=== PATIENT | male | born 1950 | race Caucasian/White ===

== ENCOUNTER 2023-04-20 07:12 | Inpatient (IN) ==
--- NOTE | 2023-04-06 13:03 | PAT Medication Instructions ---
Medication Instructions Date of Service April 06, 2023 Home Medications Fish Oil Capsule 1,000 mg PO QAM amlodipine 5 mg tablet 5 mg PO QAM aspirin 81 mg tablet,delayed release 81 mg PO QAM atorvastatin 40 mg tablet 40 mg PO HS chlorthalidone 25 mg tablet 25 mg PO QAM cholecalciferol (vitamin D3) 50 mcg (2,000 unit) tablet (Vitamin D3) 50 mcg PO BID clopidogrel 75 mg tablet (Plavix) 75 mg PO QAM coQ10 (ubiquinol) 100 mg capsule 100 mg PO QAM glucosamine sulf dipot chlr,msm,chond 550 mg-C 30 mg-toni 1 mg capsule (Glucosamine Chondroitin) 1 cap PO BID ketoconazole 2 % topical cream 1 applic topical BID PRN losartan 100 mg tablet 100 mg PO HS multivitamin 0.5 tab PO BID pantoprazole 20 mg tablet,delayed release 20 mg PO QAM ASK your prescriber and surgeon aspirin 81 mg tablet,delayed release 81 mg PO QAM clopidogrel 75 mg tablet (Plavix) 75 mg PO QAM STOP taking 2 weeks before surgery (or as soon as possible if surgery is within 2 weeks) Fish Oil Capsule 1,000 mg PO QAM coQ10 (ubiquinol) 100 mg capsule 100 mg PO QAM glucosamine sulf dipot chlr,msm,chond 550 mg-C 30 mg-toni 1 mg capsule (Glucosamine Chondroitin) 1 cap PO BID STOP taking 24 hours before surgery ketoconazole 2 % topical cream 1 applic topical BID PRN DO NOT take the morning of surgery chlorthalidone 25 mg tablet 25 mg PO QAM cholecalciferol (vitamin D3) 50 mcg (2,000 unit) tablet (Vitamin D3) 50 mcg PO BID multivitamin 0.5 tab PO BID Take morning of surgery With a small sip of water, OTHERWISE NOTHING TO EAT OR DRINK AFTER MIDNIGHT: amlodipine 5 mg tablet 5 mg PO QAM pantoprazole 20 mg tablet,delayed release 20 mg PO QAM Take evening before surgery atorvastatin 40 mg tablet 40 mg PO HS cholecalciferol (vitamin D3) 50 mcg (2,000 unit) tablet (Vitamin D3) 50 mcg PO BID losartan 100 mg tablet 100 mg PO HS multivitamin 0.5 tab PO BID Other Notes If you have any questions please call us at [phone] or [phone] or [phone] or [phone]
--- NOTE | 2023-04-09 12:01 | Anesthesiology Consultation ---
Date of Service April 09, 2023 Assessment & Plan (1) Encounter for pre-operative examination: - Infectious disease screening: Per assessment on 04/06/23: No known infectious disease contacts or current infectious disease symptoms. No noted recent Covid positive test result. - Plavix instructions: Per surgeon/prescriber - PCP visit (04/02/23): " Chronic medical conditions are stable at this time.. Review of patient history, and physical examination are WNL. Preop labs, chest x-ray, and EKG pending. Medical clearance pending." > Addendum 04/07/23: "Labs, chest xray, and EKG all WNL. Patient cleared for surgery from PCP. - Cardiology visit (04/06/23): "Based on history, physical examination and the above information do not recommend further invasive or noninvasive cardiovascular testing or procedures prior to proceeding with planned L4-S1 decompression and fusion surgery. Patient is well optimized from a cardiac standpoint to proceed with his scheduled procedure." Chart Review Chart Review: Acceptable Risk for Surgery and Patient seen in Pre Admission Testing Teaching & Discussion Pre-Anesthesia Teaching/Discussion Notes: Instructed NPO after midnight before surgery,except medications with 15 cc of water. Medication instructions provided according to the PAT guidelines. History Surgery Operation Date: 04/20/23 09:50 Proposed Procedures p L4-S1 Decompression and Fusion, Spinal Cord Monitoring - Mikel Chong DO Height/Weight Height: 5 ft 8 in Weight: 97.522 kg Allergies Allergy/AdvReac Type Severity Reaction Status Date / Time adhesive tape Allergy Mild Skin Verified 04/06/23 11:18 peeling doxycycline AdvReac Intermediate Severe Verified 04/06/23 11:18 headaches prednisone AdvReac Intermediate Severe Verified 04/06/23 11:18 headaches Medications Home Medications Medication Instructions Recorded Confirmed Last Taken Fish Oil Capsule 1,000 mg PO QAM 04/06/23 04/06/23 Unknown amlodipine 5 mg tablet 5 mg PO QAM 04/06/23 04/06/23 Unknown aspirin 81 mg tablet,delayed 81 mg PO QAM 04/06/23 04/06/23 Unknown release atorvastatin 40 mg tablet 40 mg PO HS 04/06/23 04/06/23 Unknown chlorthalidone 25 mg tablet 25 mg PO QAM 04/06/23 04/06/23 Unknown cholecalciferol (vitamin D3) 50 50 mcg PO BID 04/06/23 04/06/23 Unknown mcg (2,000 unit) tablet (Vitamin D3) clopidogrel 75 mg tablet (Plavix) 75 mg PO QAM 04/06/23 04/06/23 Unknown coQ10 (ubiquinol) 100 mg capsule 100 mg PO QAM 04/06/23 04/06/23 Unknown glucosamine sulf dipot 1 cap PO BID 04/06/23 04/06/23 Unknown chlr,msm,chond 550 mg-C 30 mg-toni 1 mg capsule (Glucosamine Chondroitin) ketoconazole 2 % topical cream 1 applic topical BID PRN . 04/06/23 04/06/23 Unknown losartan 100 mg tablet 100 mg PO HS 04/06/23 04/06/23 Unknown multivitamin 0.5 tab PO BID 04/06/23 04/06/23 Unknown pantoprazole 20 mg tablet,delayed 20 mg PO QAM 04/06/23 04/06/23 Unknown release Past Medical History Medical History Arthritis CAD (coronary artery disease) 1999- stent x1 2000- stents x2 04/2002- stent x2 Follows by Dr. Wilde/[facility] Carotid artery disease s/p Left CEA (2017) Per 04/2023 cardiology visit, patient had carotid duplex 06/2020 showing ANNEMARIE 40-50, left CEA without sign of residual or recurrent stenosis Degenerative disc disease GERD (gastroesophageal reflux disease) Hyperlipidemia Hypertension Myocardial Infarction 1999 Neuropathy BLE PAD (peripheral artery disease) Stroke 2018 (event happened during carotid surgery) No residual issues Exercise / Class Metabolic Activity III < 4 Walking/Shop/Light housework Past Family History Family History Other No family history of adverse response to anesthesia Past Surgical History Surgical History H/O arthroscopy of left knee H/O carotid endarterectomy left (2017) H/O prostate biopsy History of appendectomy History of bladder surgery History of cardiac cath Hx multiple cardiac stents with most recent being 2002- dates/stent hx clarified with cardiology records 1999- stent x1 2000- stents x2 2001- patent LAD/D1/RCA stents 04/2002- stent x2 06/2002, 2005, 2006, 2008- no stents History of colonoscopy History of esophagogastroduodenoscopy (EGD) History of lumbar surgery discectomy History of tonsillectomy History of tooth extraction Past Anesthesia History No Hx of Anesthesia Complications and No Family Hx of Anesthesia Complications History of PONV No Hx of PONV and No Hx of Motion Sickness Social History Smoking Status: Former smoker Do You Dip or Chew Tobacco: No (Quit 1973) Smoking End Date: Quit 1999 Hx Alcohol Use: No substance use type: does not use Review of Systems Patient denies chest pain, shortness of breath, fever, chills, cough, wheezing, palpitations. Physical Exam Vital Signs VITALS BP 128/74 P 69 TEMP 98.2 SP02 95%RA RESP 18 PHYSICAL Full cervical extension range of motion. Full TMJ range of motion. TMD 3.5 finger breaths Mallampati Score 2 Dentition: full upper/lower dentures Lungs: clear throughout to auscultation Cardiac: regular rate and rhythm, no murmurs noted Spine: normal Carotid arteries: negative bruit Extremities: no LE edema Lab Results Anesthesia Preop Results Results Anesthesia Widget: Na 134 mmol/L (136-145) L 04/09/23 K 3.3 mmol/L (3.5-5.1) L 04/09/23 Cl 98 mmol/L (98-107) 04/09/23 CO2 28 mmol/L (21-32) 04/09/23 BUN 24 mg/dl (6-23) H 04/09/23 Creat 0.98 mg/dl (0.6-1.4) 04/09/23 Glucose Level 116 mg/dl (70-99(Fasting)) H 04/09/23 PTT 27 Seconds (21-31) 04/09/23 Blood Type O Positive 04/09/23 Antibody Screen NEGATIVE 04/09/23 Testing Laboratory Results 04/02/23 WBC 8.0 H/H 13.1/37.6 PLATELETS 238 PT 10.9 INR 1.0 UA negative URINE CULTURE less than 10,000CFU/ml of single gram positive organism isolated. "No further testing will be performed" > (no urinary symptoms/complaints at PAT visit 04/09/23*) Electrocardiogram Date: 04/06/23 Sinus rhythm at [address] depression. Nondiagnostic. Chest X-Ray Date: 04/09/23 FINDINGS: Cardiac silhouette is normal in size. Mild hyperinflation with diaphragmatic flattening. Coronary arterial stenting. No pneumothorax, pleural effusion or airspace consolidation. The bones appear grossly intact. Healed chronic left distal clavicular fracture deformity. IMPRESSION: No acute process. Echocardiogram Date: 05/29/22 Limited echo for LV function: EF 55 to 60%. Wall motion is normal. Stress Test Date: 06/20/18 Gated SPECT: LVEF 73%. LV global systolic function is normal. No LV regional motion abnormality. SPECT images demonstrate normal radiotracer uptake across all myocardial segments during both rest and stress imaging. Stress EKG is negative for acute ischemic changes. 85% MPHR.
[2023-04-20] MEDS ORDERED: PROPOFOL IV EMULSION 10 MG/ML 20 ML VIAL IV ONE (08:19)
[2023-04-20] MEDS ORDERED: ROCURONIUM BROMIDE 10 MG/ML 5 ML VIAL IV ONE (08:19)
[2023-04-20] MEDS ORDERED: fentaNYL citrate PF 100 MCG/2 ML VIAL ONE (08:19)
[2023-04-20] MEDS ORDERED: MIDAZOLAM HCL 1 MG/ML 2ML VIAL ONE (08:19)
[2023-04-20] MEDS ORDERED: ONDANSETRON INJ 2 MG/ML 2 ML VIAL ONE ×2 (08:19→11:29)
[2023-04-20] MEDS ORDERED: LIDOCAINE 2% 2 ML VIAL/AMP(20MG/ML) INFIL ONE (08:19)
[2023-04-20] MEDS ORDERED: HYDROmorphone INJ 2 MG/ML SYR/VIAL ONE (08:22)
[2023-04-20] MEDS ORDERED: ATROPINE SULFATE 0.1 MG/ML 10ML SYR IV PRN (08:33)
[2023-04-20] MEDS ORDERED: PROMETHAZINE HCL 6.25 MG in SODIUM CHLORIDE 0.9% 50 ML IV PRN (08:33)
[2023-04-20] MEDS ORDERED: HYDROmorphone INJ 2 MG/ML SYR/VIAL IV PRN (08:33)
[2023-04-20] MEDS ORDERED: ePHEDrine sulfate 50 MG/ML AMP IV PRN (08:33)
[2023-04-20] MEDS ORDERED: ONDANSETRON INJ 2 MG/ML 2 ML VIAL IV PRN ×2 (08:33→13:46)
[2023-04-20] MEDS: LR 60ML/HR IV SCH (08:50)
[2023-04-20] MEDS: GABAPENTIN 300 MG CAP PO SCH (08:50)
[2023-04-20] MEDS: ACETAMINOPHEN 500 MG TAB PO SCH (08:50)
[2023-04-20] MEDS: CeleBREX 200 MG CAP PO SCH (08:50)
[2023-04-20] MEDS: LR 15ML/HR IV SCH (08:50)
--- NOTE | 2023-04-20 09:16 | History & Physical Bridge Note ---
Date of Service April 20, 2023 History & Physical Bridge Note I have examined the patient, reviewed the History & Physical and in the interval since the performance of the History & Physical I have noted the following changes of clinical significance: no changes noted
--- NOTE | 2023-04-20 09:17 | History & Physical Report ---
Date of Service April 20, 2023 Assessment & Plan (1) Neurogenic claudication due to lumbar spinal stenosis: Plan: L4-S1 decompression and fusion History of Present Illness Chief Complaint: Back and leg pain Primary Care Provider: MANUEL Garrett This is a 72-year-old female male who presents with persistent back and leg pain after failing since course of nonoperative care is here for surgical invention. Allergies Allergy/AdvReac Type Severity Reaction Status Date / Time methylprednisolone Allergy Severe Verified 04/20/23 08:17 [From Solu-Medrol] adhesive tape Allergy Mild Skin Verified 04/06/23 11:18 peeling doxycycline AdvReac Intermediate Severe Verified 04/06/23 11:18 headaches prednisone AdvReac Intermediate Severe Verified 04/06/23 11:18 headaches Home Medications Medication Instructions Recorded Confirmed Type Fish Oil Capsule 1,000 mg PO QAM 04/06/23 04/20/23 History amlodipine 5 mg tablet 5 mg PO QAM 04/06/23 04/20/23 History aspirin 81 mg tablet,delayed 81 mg PO QAM 04/06/23 04/20/23 History release atorvastatin 40 mg tablet 40 mg PO HS 04/06/23 04/20/23 History chlorthalidone 25 mg tablet 25 mg PO QAM 04/06/23 04/20/23 History cholecalciferol (vitamin D3) 50 50 mcg PO BID 04/06/23 04/20/23 History mcg (2,000 unit) tablet (Vitamin D3) clopidogrel 75 mg tablet (Plavix) 75 mg PO QAM 04/06/23 04/20/23 History coQ10 (ubiquinol) 100 mg capsule 100 mg PO QAM 04/06/23 04/20/23 History glucosamine sulf dipot 1 cap PO BID 04/06/23 04/20/23 History chlr,msm,chond 550 mg-C 30 mg-toni 1 mg capsule (Glucosamine Chondroitin) ketoconazole 2 % topical cream 1 applic topical BID PRN . 04/06/23 04/20/23 History losartan 100 mg tablet 100 mg PO HS 04/06/23 04/20/23 History multivitamin 0.5 tab PO BID 04/06/23 04/20/23 History pantoprazole 20 mg tablet,delayed 20 mg PO QAM 04/06/23 04/20/23 History release Past Med/Surg History Medical History Arthritis CAD (coronary artery disease) 1999- stent x1 2000- stents x2 04/2002- stent x2 Follows by Dr. Wilde/Genesis Carotid artery disease s/p Left CEA (2017) Per 04/2023 cardiology visit, patient had carotid duplex 06/2020 showing ANNEMARIE 40-50, left CEA without sign of residual or recurrent stenosis Degenerative disc disease GERD (gastroesophageal reflux disease) Hyperlipidemia Hypertension Myocardial Infarction 1999 Neuropathy BLE PAD (peripheral artery disease) Stroke 2018 (event happened during carotid surgery) No residual issues Surgical History H/O arthroscopy of left knee H/O carotid endarterectomy left (2017) H/O prostate biopsy History of appendectomy History of bladder surgery History of cardiac cath Hx multiple cardiac stents with most recent being 2002- dates/stent hx clarified with cardiology records 1999- stent x1 2000- stents x2 2001- patent LAD/D1/RCA stents 04/2002- stent x2 06/2002, 2004, 2006, 2008- no stents History of colonoscopy History of esophagogastroduodenoscopy (EGD) History of lumbar surgery discectomy History of tonsillectomy History of tooth extraction Family History Other No family history of adverse response to anesthesia Social History Smoking Status: Former smoker Tobacco Type: Cigarettes and Smokeless Tobacco (Dip or Chew) Smoking End Date: Quit 1999; Second Hand Exposure: Yes (as a child); Do You Dip or Chew Tobacco: No (Quit 1973); Hx Alcohol Use: No Preferred Language: Syriac Silk 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
[2023-04-20] MEDS: ceFAZolin 2000MG 2,000 MG/15 ML SYR IV SCH ×2 (09:53→17:16)
[2023-04-20] MEDS: BUPIVACAINE/EPINEPHRINE 0.5% MPF 1:200,000 30 ML VIAL ONE (10:21)
[2023-04-20] MEDS: ceFAZolin 330 MG/ML 1 GM VIAL ONE (10:21)
[2023-04-20] MEDS ORDERED: SUGAMMADEX SODIUM 200 MG/2 ML VIAL IV ONE (11:28)
[2023-04-20] MEDS ORDERED: SODIUM CHLORIDE 0.9% PF INJ 10 ML VIAL ONE (11:38)
[2023-04-20] MEDS: FLOSEAL HEMOSTATIC MATRIX 10ML TOP ONE (11:55)
--- NOTE | 2023-04-20 12:06 | Operative Report ---
Post Operative Report Pre & Post Diagnosis Operation Date: 04/20/23 09:50 Pre-Op Diagnosis: Lumbar Spondylosis, Lumbar Disc Disease, Spinal Stenosis Post-Op Diagnosis: Lumbar Spondylosis, Lumbar Disc Disease, Spinal Stenosis I identified the patient and participated in the time-out.: Yes Procedure Operation Date: 04/20/23 09:50 Actual Procedures #1 revision decompression bilaterally facetectomies and foraminotomies L3-L4, L4-5 and L5-S1. #2 posterior spinal fusion L4-S1. #3 placed posterior instrumentation L4-S1. #4 interbody fusion L4-L5 L5-S1. #5 placement Spira 13 x 26 mm at L4-5 and 14 x 26 mm x 2 at L5-S1. #6 placement locally harvested morselized autograft and posterior gutters. #7 placement infuse collagen sponge combined with Koros in the posterior gutters and Morpheus bone graft interbody space. Surgeon Mikel Chong, DO Manager Scientific Lana Mann Estimated Blood Loss 300 Findings See Below The patient is 5 foot 8 weighing over 99 kg with a BMI in excess of 33. The patient's body habitus contributed to significant technical difficulty with positioning exposure and the procedure itself adding at least 50% increased operative time. Specimens None Indications This is a 72-year-old male who presents above-mentioned diagnosis after failed extensive course of nonoperative care is here for surgical invention. Description of Procedure Patient was met with identified informed consent obtained. Patient was then taken to the operative suite underwent patient placed in a prone position the Lutts table top Lawson frame. All bony prominences well-padded eyes inspected to ensure no external pressure placed upon the. This point the lumbar spine was prepped and draped in a sterile fashion. Sharp dissection with the assistance of Bovie cautery form down to and exposing the remaining lamina and transverse processes of L4-L5 and the sacral ala bilaterally. From a caudal cephalad fashion revision complete laminectomy of L5 L4 and partial laminectomy L3 was performed including bilaterally facetectomies and foraminotomies addressing severe spinal stenosis. Pedicle screws were then placed in L4-5 and S1 levels bilaterally with assistance of fluoroscopy and appropriate sized nataliia placed. By way the transforaminal approach on the right a discectomy L5-S1 was performed endplates guided to subcortical bleeding bone and a 14 x 26 mm Spira cage filled with Morpheus tapped in position. Then proceeded to the left transforaminal region completed the discectomy curetted the endplates to subcortical bleeding bone and placed a second 14 x 26 mm Spira cage with Morpheus bone graft in the L5-S1 level. Then proceeded to L4-L5 and by way of a transforaminal approach and right complete discectomy performed endplates guided to subcortical bleeding bone and a 13 x 26 mm Spira cage filled with Morpheus bone graft tapped in position. The rods were then locked in final position bilaterally. The transverse processes of L4-5 and sacral ala burred to subcortical bleeding bone. Infuse collagen sponge combined with Koros and local autograft placed in the posterior gutters. 15 round STEPHON inserted. The incision was then closed with 1 Vicryl fascia 2-0 Vicryl subcutaneously and 4 Monocryl for final closure. Steri-Strips dressings placed. Patient waken taken to PACU in stable condition. Please note spinal cord monitoring visualized at the procedure no changes noted. Lastly Lana Mann was present at the entire surgeon while the patient positioning complex portion of the surgery and final skin closure. I attest to the content of the Intraoperative Record and any orders documented therein. Any exceptions are noted below.
[2023-04-20] MEDS: fentaNYL citrate PF 100 MCG/2 ML VIAL IV PRN (12:43)
--- NOTE | 2023-04-20 13:04 | Fluoroscopy Report ---
FL lumbar spine 2-3V CLINICAL HISTORY: L4-S1 Decompression/Fusion COMPARISON STUDY: None. FLUOROSCOPY TIME: 22 seconds FLUOROSCOPY IMAGES: 2 Ka,r: 16.2 mGy FINDINGS: Posterior decompression and fusion from L4 through S1 with pedicle screws and rods. The braxton dware is intact. Disc spacers are placed. IMPRESSION: Fluoroscopic assistance as above. ACT 112: Negative or not required by law. Electronically signed by: Julien Davila M.D. 04/20/2023 1:02 PM
--- NOTE | 2023-04-20 13:19 | Anesthesiology Progress Note ---
Date of Service April 20, 2023 Anesthesia Post Procedure Vital Signs Vital Signs: Temp Pulse Pulse Resp BP Pulse Ox O2 Del Method 04/20/23 13:10 36.5 C 77 16 137/74 93 Nasal Cannula 04/20/23 13:00 76 17 137/69 94 Room Air 04/20/23 12:50 78 11 L 148/78 H 99 Oxymask 04/20/23 12:40 80 16 161/80 H 98 Oxymask 04/20/23 12:30 89 9 L 182/93 H 97 Oxymask 04/20/23 12:24 36.3 C L 94 H 16 181/89 H 95 Oxymask 04/20/23 08:24 36.5 C 62 20 166/76 H 97 Room Air O2 Flow Rate 04/20/23 13:10 2 04/20/23 13:00 04/20/23 12:50 2 04/20/23 12:40 3 04/20/23 12:30 3 04/20/23 12:24 5 04/20/23 08:24 Pain Intensity Back: Pain Intensity: 0 Transfer of Care Handoff Completed per policy Notes Mental Status: alert / awake / arousable and participated in evaluation Patient Amnestic to Procedure: Yes Nausea / Vomiting: adequately controlled Pain: adequately controlled Airway Patency, RR, SpO2: stable & adequate BP & HR: stable & adequate Hydration State: stable & adequate Anesthetic Complications: no major complications apparent and Pt Satisfied with anesthetic care
[2023-04-20] MEDS ORDERED: DO NOT ADMINISTER FLU VACCINE PRN (13:46)
[2023-04-20] MEDS ORDERED: ACETAMINOPHEN 1,000 MG/100 ML VIAL IV PRN (13:46)
[2023-04-20] MEDS ORDERED: hydrOXYzine HCl 25 MG TAB PO PRN (13:46)
[2023-04-20] MEDS ORDERED: PROMETHAZINE HCL 12.5 MG in SODIUM CHLORIDE 0.9% 50 ML IV PRN (13:46)
[2023-04-20] MEDS ORDERED: METOCLOPRAMIDE HCL INJ 5 MG/ML 2 ML VIAL IV PRN (13:46)
[2023-04-20] MEDS ORDERED: SOD PHOSPHATE/SOD BIPHOSPHATE ENEMA 132 ML BTL PR PRN (13:46)
[2023-04-20] MEDS ORDERED: HYDROmorphone INJ 1 MG/ML SYRINGE IV PRN (13:46)
[2023-04-20] MEDS ORDERED: DO NOT ADMINISTER PNEUMOCOCCAL VACCINE PRN (13:46)
[2023-04-20] MEDS ORDERED: LORazepam 0.5 MG TAB PO PRN (13:46)
[2023-04-20] MEDS ORDERED: bisacodyL 10 MG SUPP PR PRN (13:46)
[2023-04-20] MEDS ORDERED: LORazepam 0.5 MG in SYRINGE 0.25 ML IV PRN (13:46)
[2023-04-20] MEDS ORDERED: ALUMINUM/MAGNESIUM SUSP 30 ML UDC PO PRN (13:46)
[2023-04-20] MEDS ORDERED: NALOXONE HCL 0.4 MG/1 ML VIAL/CARP IV PRN (13:46)
[2023-04-20] MEDS ORDERED: ONDANSETRON 4 MG OD TAB PO PRN (13:46)
[2023-04-20] MEDS: LACTATED RINGER'S 1,000 ML IV SCH (14:03)
[2023-04-20] MEDS: HYDROmorphone INJ 0.5 MG/0.5 ML SYR IV PRN (14:53)
[2023-04-20] MEDS: oxyCODONE HCL IR 5 MG TAB (IMMEDIATE RELEASE) PO PRN (17:15)
--- NOTE | 2023-04-20 17:16 | Hospitalist Consultation ---
Date of Consultation April 20, 2023 Assessment & Plan (1) Neurogenic claudication due to lumbar spinal stenosis: This is a 72 y/o male with CAD, PAD, carotid artery stenosis s/p CEA, GERD w/ hx Begum's, prior CVA, BPH, HTN, and lumbar radiculopathy who underwent L4-S1 decompression and fusion today by Dr. Chong. Pt has a history of CAD but has had no recent anginal symptoms. He has a history of adverse reaction to methylprednisolone in the past but has more recently tolerated low-dose prednisone. Currently, he has no complaints other than post-operative back pain. - Pain control, DVT Prophylaxis, Activity per primary service - Recommend resuming Plavix as soon as okay with primary team - Discussed with patient the importance of incentive spirometry and reviewed use of device. Pt was on room air during my evaluation. - Labs in the AM - CBC, BMP - Pt is scheduled to get dexamethasone per post-operative protocol - will add Accu-checks AC to monitor blood glucose due to history of marked hyperglycemia with steroids previously. - Hold chlorthalidone for tomorrow to ensure patient taking adequate oral intake post-operatively and renal function stable (2) CAD (coronary artery disease): See plan for #1 (3) GERD (gastroesophageal reflux disease): Chronic, stable Continue PPI (4) Hypertension: BP slightly elevated but pt with pain at present - will continue to monitor, resume amlodipine but holding chlorthalidone for now Plan Continue other home medications as appropriate. Pt seen and reviewed with collaborating physician, Dr. Howell. Plan of care discussed and as outlined above. Thank you for this consultation. We will continue to follow this patient with you. [facility] Please don't hesitate to call with questions. Valdez Harrell PA-C Supervising Physician Co-Signing Physician Notes Attending addendum The patient was seen and examined in medical floor He is a status post a L4-S1 decompression and fusion Complaints minimal pain at the back with some radiation to the right leg Denies any other significant symptoms On examination Lying in bed comfortably Hemodynamically stable Chest-clear to auscultate bilaterally Heart-S1-S2, regular Abdomen-benign Extremities-negative for any edema His admission labs, imaging studies and EKG reviewed Status post L4-S1 decompression fusion Remains medically stable Will monitor CBC and PRP Agree with assessment plan as outlined above by Christy Howell History of Present Illness Reason for Consultation: Post-operative medical management Requesting Physician: Dr. Mikel Chong Attending Physician: Mikel Chong, DO History of Present Illness This is a 72 y/o male with CAD, PAD, carotid artery stenosis s/p CEA, GERD w/ hx Begum's, prior CVA, BPH, HTN, and lumbar radiculopathy who underwent L4-S1 decompression and fusion today by Dr. Chong and for whom we have been consulted to assist with post-operative medical management. Pt's outpatient PCP and cardiology notes were reviewed. Currently, pt is complaining of some lower back pain that seemed to start after he sat up to eat dinner but otherwise is doing well post-operatively. He denies chest pain, palpitations, dyspnea, lightheadedness, nausea, vomiting. He is noted to have an allergy to methylprednisolone on the chart - pt states that he was given this for his back pain and he developed racing heart, chest discomfort so he went to the ED for evaluation and was found to have a sugar greater than 400. However, these symptoms resolved within hours and pt has since tolerated low doses of prednisone without significant issue. Allergies Allergy/AdvReac Type Severity Reaction Status Date / Time methylprednisolone Allergy Severe Verified 04/20/23 08:17 [From Solu-Medrol] adhesive tape Allergy Mild Skin Verified 04/06/23 11:18 peeling doxycycline AdvReac Intermediate Severe Verified 04/06/23 11:18 headaches prednisone AdvReac Intermediate Severe Verified 04/06/23 11:18 headaches Home Medications Medication Instructions Recorded Confirmed Type Fish Oil Capsule 1,000 mg PO QAM 04/06/23 04/20/23 History amlodipine 5 mg tablet 5 mg PO QAM 04/06/23 04/20/23 History aspirin 81 mg tablet,delayed 81 mg PO QAM 04/06/23 04/20/23 History release atorvastatin 40 mg tablet 40 mg PO HS 04/06/23 04/20/23 History chlorthalidone 25 mg tablet 25 mg PO QAM 04/06/23 04/20/23 History cholecalciferol (vitamin D3) 50 50 mcg PO BID 04/06/23 04/20/23 History mcg (2,000 unit) tablet (Vitamin D3) clopidogrel 75 mg tablet (Plavix) 75 mg PO QAM 04/06/23 04/20/23 History coQ10 (ubiquinol) 100 mg capsule 100 mg PO QAM 04/06/23 04/20/23 History glucosamine sulf dipot 1 cap PO BID 04/06/23 04/20/23 History chlr,msm,chond 550 mg-C 30 mg-toni 1 mg capsule (Glucosamine Chondroitin) ketoconazole 2 % topical cream 1 applic topical BID PRN . 04/06/23 04/20/23 History losartan 100 mg tablet 100 mg PO HS 04/06/23 04/20/23 History multivitamin 0.5 tab PO BID 04/06/23 04/20/23 History pantoprazole 20 mg tablet,delayed 20 mg PO QAM 04/06/23 04/20/23 History release Patient History Medical History (Updated 04/20/23 @ 18:26 by Manisha Harrell PA-C) Begum esophagus Carotid artery disease s/p Left CEA (2017) Per 04/2023 cardiology visit, patient had carotid duplex 06/2020 showing ANNEMARIE 40-50, left CEA without sign of residual or recurrent stenosis PAD (peripheral artery disease) CAD (coronary artery disease) 1999- stent x1 2000- stents x2 04/2002- stent x2 Follows by Dr. Wilde/[facility] Degenerative disc disease Arthritis GERD (gastroesophageal reflux disease) Neuropathy BLE Stroke 2018 (event happened during carotid surgery) No residual issues Myocardial Infarction 1999 Hyperlipidemia Hypertension Surgical History History of cardiac cath Hx multiple cardiac stents with most recent being 2002- dates/stent hx clarified with cardiology records 1999- stent x1 2000- stents x2 2001- patent LAD/D1/RCA stents 04/2002- stent x2 06/2002, 2004, 2006, 2009- no stents H/O arthroscopy of left knee History of lumbar surgery discectomy History of bladder surgery H/O prostate biopsy History of esophagogastroduodenoscopy (EGD) History of colonoscopy History of appendectomy History of tooth extraction History of tonsillectomy H/O carotid endarterectomy left (2017) Family History Other No family history of adverse response to anesthesia Social History Smoking Status: Former smoker Tobacco Type: Cigarettes and Smokeless Tobacco (Dip or Chew) Smoking End Date: Quit 1999; Second Hand Exposure: Yes (as a child); Do You Dip or Chew Tobacco: No (Quit 1973); Hx Alcohol Use: No Preferred Language: Chinese Cut Tobacco Bulker Required: No Beliefs That Will Affect Care: None Current Living Situation: Spouse Feels Safe at Home: Yes Safety Concerns: Feels Safe At This Time Assistive Devices: Cane, Denture - Upper, Denture - Lower, Glasses and Walker Review of Systems Review of Systems: All systems reviewed & are unremarkable except as noted in HPI & below Constitutional: no fever and no chills Eyes: no diplopia Ear, Nose, Mouth, Throat: no sore throat and no dysphagia Respiratory: no cough and no dyspnea Cardiovascular: no chest pain, no palpitations, no lightheadedness and no syncope Gastrointestinal: no abdominal pain, no nausea and no vomiting Musculoskeletal: + back pain Integumentary: no rash Neurologic: no dizziness and no headache(s) Physical Exam Physical Exam: General: awake, alert, NAD HEENT: no scleral icterus, moist oral mucosa Neck: trachea midline Heart: RRR Lungs: CTA bilaterally Abdomen: soft, NT, +BS Extremities: no pedal edema, distal pulses intact and equal Skin: warm, dry, no jaundice, no rashes Neurologic: Ox3, moving all extremities, no focal deficits Results & Data Results & Data Vital Signs (Past 12 Hours) Vital Signs Temp Pulse Pulse Resp BP Pulse Ox O2 Del Method 04/20/23 16:50 36.7 C 71 16 143/82 H 95 Nasal Cannula 04/20/23 15:52 36.6 C 72 16 131/80 98 Nasal Cannula 04/20/23 14:49 36.5 C 75 18 154/70 H 97 Nasal Cannula 04/20/23 14:24 36.6 C 71 16 133/75 96 Room Air 04/20/23 13:50 Nasal Cannula 04/20/23 13:50 36.6 C 70 18 130/75 96 Nasal Cannula 04/20/23 13:30 36.5 C 71 17 137/70 94 Nasal Cannula 04/20/23 13:15 36.5 C 72 16 130/71 98 Nasal Cannula 04/20/23 13:10 36.5 C 77 16 137/74 93 Nasal Cannula 04/20/23 13:00 76 17 137/69 94 Room Air 04/20/23 12:50 78 11 L 148/78 H 99 Oxymask 04/20/23 12:40 80 16 161/80 H 98 Oxymask 04/20/23 12:30 89 9 L 182/93 H 97 Oxymask 04/20/23 12:24 36.3 C L 94 H 16 181/89 H 95 Oxymask 04/20/23 08:24 36.5 C 62 20 166/76 H 97 Room Air O2 Flow Rate 04/20/23 16:50 1 04/20/23 15:52 1 04/20/23 14:49 2 04/20/23 14:24 2 04/20/23 13:50 2 04/20/23 13:50 2 04/20/23 13:30 2 04/20/23 13:15 2 04/20/23 13:10 2 04/20/23 13:00 04/20/23 12:50 2 04/20/23 12:40 3 04/20/23 12:30 3 04/20/23 12:24 5 04/20/23 08:24 Laboratory Results 04/20/23 07:56 Blood Type O Positive Antibody Screen NEGATIVE Crossmatch See Detail Medications Administered Acetaminophen (Acetaminophen 500 Mg Tab) 1,000 mg PO PREOP CHARLENE Stop: 04/20/23 18:00 Last Admin: 04/20/23 08:50 Dose: 1,000 mg Documented By: JARRETT Celecoxib (Celebrex 200 Mg Cap) 200 mg PO PREOP CHARLENE Stop: 04/20/23 18:00 Last Admin: 04/20/23 08:50 Dose: 200 mg Documented By: JARRETT Gabapentin (Gabapentin 300 Mg Cap) 300 mg PO PREOP CHARLENE Stop: 04/20/23 18:00 Last Admin: 04/20/23 08:50 Dose: 300 mg Documented By: JARRETT Hydromorphone HCl (Hydromorphone Inj 0.5 Mg/0.5 Ml Syr) 0.5 mg IV Q3H PRN PRN Reason: MODERATE Pain (Scale 4,5,6) & Pre PT Stop: 05/04/23 13:45 Last Admin: 04/20/23 14:53 Dose: 0.5 mg Documented By: ROSEANNE Lactated Ringer's (Lr) 1,000 mls @ 60 mls/hr IV .[id number] CHARLENE Stop: 04/20/23 22:39 Last Admin: 04/20/23 08:50 Dose: Not Given Documented By: JARRETT Cefazolin Sodium (Ancef 2000mg) 2,000 mg in 15 mls @ 3.75 mls/min IV PREOP CHARLENE; Protocol Stop: 04/20/23 18:00 Last Admin: 04/20/23 09:53 Dose: 3.75 mls/min Documented By: JORI Lactated Ringer's (Lr) 1,000 mls @ 15 mls/hr IV .Q24H CHARLENE Stop: 04/21/23 05:59 Last Infusion: 04/20/23 09:51 Dose: Infused Documented By: Admin: 04/20/23 08:50 Dose: 15 mls/hr Documented By: JARRETT Lactated Ringer's (Lr) 1,000 mls @ 100 mls/hr IV .Q10H [facility] Stop: 05/20/23 13:45 Last Admin: 04/20/23 14:03 Dose: 100 mls/hr Documented By: WRKarli Discontinued Medications Bupivacaine HCl/Epinephrine Bitart (Bupivacaine/Epinephrine 0.5% Mpf 1:200,000 30 Ml Vial) Confirm Administered Dose 30 ml .ROUTE .STK-MED ONE Stop: 04/20/23 09:41 Last Admin: 04/20/23 10:21 Dose: 25 ml Documented By: GMB Cefazolin Sodium (Cefazolin 330 Mg/Ml 1 Gm Vial) Confirm Administered Dose 990 mg .ROUTE .STK-MED ONE Stop: 04/20/23 09:41 Last Admin: 04/20/23 10:21 Dose: 990 mg Documented By: GMB Fentanyl Citrate (Fentanyl Citrate Pf 100 Mcg/2 Ml Vial) 25 mcg IV Q5M PRN PRN Reason: PACU Use Only-Pain Stop: 04/20/23 16:33 Last Admin: 04/20/23 12:43 Dose: 25 mcg Documented By: LML Miscellaneous ( Floseal Hemostatic Matrix 10ml) 20 ml TOP ONCE ONE Stop: 04/20/23 10:21 Last Admin: 04/20/23 11:55 Dose: 18 ml Documented By: GMB (2) CAD (coronary artery disease) Associated angina: without angina Coronary Disease-Associated Artery/Lesion type: [place] artery [place] vs. transplanted heart: [place] heart Qualified Code(s): I25.10 - Atherosclerotic heart disease of [place] coronary artery without angina pectoris (3) GERD (gastroesophageal reflux disease) Esophagitis presence: without esophagitis Qualified Code(s): K21.9 - Gastro- esophageal reflux disease without esophagitis (4) Hypertension Hypertension type: primary hypertension Qualified Code(s): I10 - Essential (primary) hypertension
[2023-04-20] MEDS: CHOLECALCIFEROL 25 MCG (1000 UNITS) TAB PO SCH (20:00)
[2023-04-20] MEDS: DOCUSATE SODIUM/SENNA 50/8.6MG TAB PO SCH (20:00)
[2023-04-20] MEDS: ATORVASTATIN 40 MG TAB PO SCH (20:00)
[2023-04-20] MEDS: LOSARTAN POTASSIUM 50 MG TAB PO SCH (20:00)
[2023-04-21] MEDS: diphenhydrAMINE Capsule 25 MG CAP PO PRN (01:53)
[2023-04-21] MEDS: FAMOTIDINE 20 MG TAB PO PRN (03:35)
[2023-04-21] MEDS: POLYETHYLENE (MIRALAX) 17 GM PACK PO SCH (05:13)
[2023-04-21 06:43] LABS: Basophils # (auto) 0.07 K/uL (0.00-0.20); Basophils % (auto) 0.6 %; Eosinophils # (auto) 0.26 K/uL (0.00-0.50); Eosinophils % (auto) 2.1 %; Hematocrit (blood only) 31.2 % (42.0-52.0); Hemoglobin 11.1 g/dl (14.0-18.0); Immature Granulocytes # (auto) 0.04 K/uL (0.01-0.20); Immature Granulocytes % (auto) 0.3 %; Lymphocytes # (auto) 1.64 K/uL (1.20-3.40); Lymphocytes % (auto) 13.3 %; Mean Corpuscular Hemoglobin 33.5 pg (25.0-34.0); Mean Corpuscular Hgb Conc 35.6 g/dL (32.0-36.0); Mean Corpuscular Volume 94.3 fL (80.0-100.0); Mean Platelet Volume 9.5 fL (9.4-12.4); Monocytes # (auto) 0.98 K/uL (0.11-0.59); Neutrophils # (auto) 9.32 K/uL (1.40-6.50); Neutrophils % (auto) 75.7 %; Platelet Count 181 K/uL (130-400); RDW Coefficient of Variation 13.8 % (11.5-14.5); Red Blood Count 3.31 M/uL (4.70-6.10); White Blood Count 12.31 K/ul (4.8-10.8)
[2023-04-21 06:55] LABS: Calcium 8.8 mg/dl (8.6-10.3); Creatinine Clr Calc Pharmacy 82.2 ml/min; Est GFR (African American) 94.2 ml/min; Est GFR (Non-African American) 81.2 ml/min; Potassium 3.7 mmol/L (3.5-5.1)
[2023-04-21] MEDS ORDERED: NON-FORMULARY MEDICATION (Coq10 (Ubiquinol) 100 mg Capsule) PO SCH (09:00)
[2023-04-21] MEDS ORDERED: CHLORTHALIDONE 25 MG TAB PO SCH (09:00)
[2023-04-21] MEDS: PANTOprazole 40 MG TAB PO SCH (09:01)
[2023-04-21] MEDS: amLODIPine BESYLATE 5 MG TAB PO SCH (09:47)
[2023-04-21] MEDS: ASPIRIN 81 MG ECTAB PO SCH (09:48)
[2023-04-21] MEDS: dexAMETHasone 6 MG in SYRINGE 0 ML IV SCH (09:48)
--- NOTE | 2023-04-21 10:16 | Orthopedic Progress Note ---
Date of Service April 21, 2023 Assessment & Plan (1) Neurogenic claudication due to lumbar spinal stenosis: Plan: At this time we will continue physical therapy monitor his STEPHON operatively discharged home in the next few days. Admission and Anticipated Discharge Date Admission Date: April 20, 2023 Subjective Back pain controlled leg pain improved Physical Exam Physical Exam: Patient is up and ambulating. Is good strength testing. Appears comfortable. Results & Data Vital Signs (Past 12 Hours) Vital Signs Temp Pulse Resp BP BP Pulse Ox O2 Del Method 04/21/23 07:53 37.2 C 77 18 119/73 92 Room Air 04/21/23 03:01 36.7 C 67 18 115/67 96 Room Air 04/20/23 22:21 36.6 C 74 18 136/73 97 Room Air Queries Orthopedic Spine Obesity: Yes
[2023-04-21] MEDS: ACETAMINOPHEN 500 MG TAB PO PRN (11:55)
--- NOTE | 2023-04-21 15:00 | Hospitalist Progress Note ---
Date of Service April 21, 2023 Assessment & Plan (1) Neurogenic claudication due to lumbar spinal stenosis: Plan: 72 y/o male with CAD, PAD, carotid artery stenosis s/p CEA, GERD w/ hx Begum's, prior CVA, BPH, HTN, and lumbar radiculopathy who underwent L4-S1 decompression and fusion today by Dr. Chong. Pt has a history of CAD but has had no recent anginal symptoms. He has a history of adverse reaction to methylprednisolone in the past but has more recently tolerated low-dose prednisone. Pain control, DVT Prophylaxis, Activity per primary service Recommend resuming Plavix as soon as okay with Surgeon Hb is 11.1 (unknown baseline) Monitor Per Medical clearance, does not have DM Monitor blood glucose while on IV dexamethasone. If needed, may do low dose sliding scale (2) CAD (coronary artery disease): Plan: Continue ASA 81mg Resume plavix once ok with surgeon Continue atorvastatin (3) Hypertension: Plan: Continue home chlorthalidone and amlodipine (4) GERD (gastroesophageal reflux disease): Plan: Chronic, stable Continue PPI Plan I spent a total of 40 minutes coordinating, documenting and providing care for this patient excluding time spent in performance of separately billed services Admission and Anticipated Discharge Date Admission Date: April 20, 2023 Subjective Patient seen and examined Reported some dysuria after removal of [place] but stated that dysuria has resolved. Yet to move bowels. Denies nausea, vomiting, pain, cough, chest pain or shortness of breath Reports surgical site pain is controlled Radiculopathic pain down LE has resolved since surgery Physical Exam Constitutional: + well hydrated; no acute distress Eyes: PERRL, conjunctivae normal, anicteric sclerae ENMT: external ear and nose normal, oropharynx normal Respiratory: normal respiratory effort, lungs clear to auscultation Cardiovascular: Rate/Rhythm: regular rate and regular rhythm S1 S2 Gastrointestinal (Abdomen): normal bowel sounds, soft, nontender, no hepatosplenomegaly Musculoskeletal: Clean dressing over lower back with drain in situ Neurologic: PERRL, EOMI, accommodation nl, no face palsy, no dysarthria Psychiatric: A+Ox3, euthymic affect Results & Data Results & Data Vital Signs (Past 12 Hours) Vital Signs Temp Pulse Resp BP BP Pulse Ox O2 Del Method 04/21/23 11:08 37.5 C 77 16 121/73 93 Room Air 04/21/23 07:53 37.2 C 77 18 119/73 92 Room Air 04/21/23 03:01 36.7 C 67 18 115/67 96 Room Air Laboratory Results Abnormal lab results 04/21/23 04/21/23 04/21/23 Range/Units 06:02 07:51 11:26 WBC 12.31 H (4.8-10.8) K/ul RBC 3.31 L (4.70-6.10) M/uL Hgb 11.1 L (14.0-18.0) g/dl Hct 31.2 L (42.0-52.0) % RDW Std Deviation 47.0 H (36.4-46.3) fL Neut # (Auto) 9.32 H (1.40-6.50) K/uL [place] # (Auto) 0.98 H (0.11-0.59) K/uL Sodium 135 L (136-145) mmol/L Glucose 123 H (70-99(Fasting)) mg/dl POC Glucose 133 H 182 H (70-99) mg/dl 04/21/23 Range/Units 16:28 WBC (4.8-10.8) K/ul RBC (4.70-6.10) M/uL Hgb (14.0-18.0) g/dl Hct (42.0-52.0) % RDW Std Deviation (36.4-46.3) fL Neut # (Auto) (1.40-6.50) K/uL [place] # (Auto) (0.11-0.59) K/uL Sodium (136-145) mmol/L Glucose (70-99(Fasting)) mg/dl POC Glucose 168 H (70-99) mg/dl (2) CAD (coronary artery disease) Associated angina: without angina Coronary Disease-Associated Artery/Lesion type: [place] artery [place] vs. transplanted heart: [place] heart Qualified Code(s): I25.10 - Atherosclerotic heart disease of [place] coronary artery without angina pectoris (3) Hypertension Hypertension type: primary hypertension Qualified Code(s): I10 - Essential (primary) hypertension (4) GERD (gastroesophageal reflux disease) Esophagitis presence: without esophagitis Qualified Code(s): K21.9 - Gastro- esophageal reflux disease without esophagitis
[2023-04-21] MEDS: COUGH DROP (SUGAR FREE) LOZ 24 LOZ/1 BOX BUCCAL ONE (20:58)
[2023-04-21] MEDS: traMADol HCL 50 MG TABLET PO PRN (20:58)
[2023-04-22] MEDS: MAGNESIUM HYDROXIDE SUSP 30 ML UDC PO PRN (00:08)
[2023-04-22 07:03] LABS: Hematocrit (blood only) 30.6 % (42.0-52.0); Mean Corpuscular Hemoglobin 33.3 pg (25.0-34.0); Mean Corpuscular Hgb Conc 35.9 g/dL (32.0-36.0); Mean Corpuscular Volume 92.7 fL (80.0-100.0); Mean Platelet Volume 9.5 fL (9.4-12.4); Platelet Count 221 K/uL (130-400); RDW Coefficient of Variation 13.7 % (11.5-14.5); RDW Standard Deviation 46.3 fL (36.4-46.3); White Blood Count 18.76 K/ul (4.8-10.8)
[2023-04-22 07:30] LABS: BUN Creatinine Ratio 23.5 (10-20); Calcium 9.4 mg/dl (8.6-10.3); Creatinine Clr Calc Pharmacy 78.9 ml/min; Est GFR (African American) 89.5 ml/min; Est GFR (Non-African American) 77.3 ml/min; Potassium 4.1 mmol/L (3.5-5.1)
--- NOTE | 2023-04-22 08:52 | Orthopedic Progress Note ---
Date of Service April 22, 2023 Assessment & Plan (1) Neurogenic claudication due to lumbar spinal stenosis: Plan: Jaden is postoperative day 2 status post L4-S1 decompression and fusion. Will continue with physical therapy and ambulation today. Maintain STEPHON drain. Work on aggressive bowel regimen. Continue with pain control. DVT prophylaxis is in the form teds and SCDs. Anticipate discharge home tomorrow Admission and Anticipated Discharge Date Admission Date: April 20, 2023 Nini Stanley is postoperative day 2 status post L4-S1 decompression instrumented fusion. Leg symptoms resolved. Back pain is controlled. He is passing flatus but no bowel movement. STEPHON drain output last shift was 55 cc. H&H this morning are 11.0 and 30.6 respectively. Yesterday in physical therapy ambulating 250 feet. No other complaints. Review of Systems Review of Systems: All systems reviewed & are unremarkable except as noted in HPI & below Physical Exam Physical Exam: He sitting up in a chair in no acute distress Alert and oriented x 3 Lumbar dressing is clean dry intact with functioning STEPHON drain Calf soft and nontender bilaterally Strength intact bilateral lower extremities Results & Data Vital Signs (Past 12 Hours) Vital Signs Temp Pulse Resp BP Pulse Ox O2 Del Method 04/22/23 07:24 36.3 C L 57 L 16 115/80 94 Room Air Queries Orthopedic Spine Obesity: Yes
[2023-04-22] MEDS: CHLORTHALIDONE 25 MG TAB PO SCH (09:43)
[2023-04-22 13:10] LABS: Estimated Average Glucose 111 mg/dl; Hemoglobin A1C 5.5 % (4.5-5.6)
--- NOTE | 2023-04-22 16:55 | Hospitalist Progress Note ---
Date of Service April 22, 2023 Assessment & Plan (1) Neurogenic claudication due to lumbar spinal stenosis: Plan: Patient is a 72 yr male with CAD, PAD, carotid artery stenosis s/p CEA, GERD w/ hx Begum's, prior CVA, BPH, HTN, and lumbar radiculopathy who underwent L4-S1 decompression and fusion today by Dr. Chong. Pt has a history of CAD but has had no recent anginal symptoms. He has a history of adverse reaction to methylprednisolone in the past but has more recently tolerated low-dose prednisone. Lumbar spinal stenosis with neurogenic claudication S/P lumbar decompression, fusion surgery by Dr. Chong on 04/20/2023 Monitor for postop anemia DVT prophylaxis, wound care as per primary team Continue PT OT, incentive spirometer Bowel regimen to prevent constipation Leukocytosis, hyperglycemia likely secondary to steroids--monitor Resume Plavix when appropriate Hyperglycemia Likely due to steroids HbA1c 5.5 Advised dietary changes (2) CAD (coronary artery disease): Plan: Continue ASA 81mg Resume plavix once ok with surgeon Continue atorvastatin (3) Hypertension: Plan: Continue home chlorthalidone and amlodipine with holding parameters (4) GERD (gastroesophageal reflux disease): Plan: Chronic, stable Continue PPI Plan CODE STATUS Full code Admission and Anticipated Discharge Date Admission Date: April 20, 2023 Subjective Patient is seen and examined at bedside Back pain at surgical site is controlled Had bowel movement today Denies any chest pain, dyspnea, dizziness, nausea, vomiting, abdominal pain Ambulated in hallway with no issues Review of Systems Review of Systems: All systems reviewed & are unremarkable except as noted in Subjective Physical Exam Physical Exam: Physical Exam: Vitals signs as noted above General Appearance:Moderately built and nourished, no apparent distress Head: normocephalic, Atraumatic Eyes: normal inspection, EOMI Neck: supple, Trachea midline Respiratory/Chest: Normal breath sounds, CTA, No accessory muscle use Cardiovascular: S1, S2, No murmur Abdomen/GI:Soft, Non tender, Bowel sounds present Back: Surgical site in dressing,+drain Extremities/Musculoskeletal:normal inspection, no edema Neurologic/Psych:AAOX3, grossly no focal neurological deficits Skin: normal color, warm Results & Data Results & Data Vital Signs (Past 12 Hours) Vital Signs Temp Pulse Pulse Resp BP BP Pulse Ox 04/22/23 15:28 36.3 C L 62 16 102/65 97 02/21/24 07:24 36.3 C L 57 L 16 115/80 94 O2 Del Method 04/22/23 15:28 Room Air 04/22/23 07:24 Room Air Laboratory Results Short CBC 04/22/23 Range/Units 06:31 WBC 18.76 H (4.8-10.8) K/ul Hgb 11.0 L (14.0-18.0) g/dl Hct 30.6 L (42.0-52.0) % Plt Count 221 (130-400) K/uL BMP 04/22/23 06:31 Sodium 133 L Potassium 4.1 Chloride 95 L Carbon Dioxide 31 BUN 23 Creatinine 0.98 Glucose 161 H Calcium 9.4 (2) CAD (coronary artery disease) Coronary Disease-Associated Artery/Lesion type: [place] artery [place] vs. transplanted heart: [place] heart Associated angina: without angina Qualified Code(s): I25.10 - Atherosclerotic heart disease of [place] coronary artery without angina pectoris (3) Hypertension Hypertension type: primary hypertension Qualified Code(s): I10 - Essential (primary) hypertension (4) GERD (gastroesophageal reflux disease) Esophagitis presence: without esophagitis Qualified Code(s): K21.9 - Gastro- esophageal reflux disease without esophagitis
[2023-04-23 06:55] LABS: Hematocrit (blood only) 30.5 % (42.0-52.0); Hemoglobin 10.7 g/dl (14.0-18.0); Mean Corpuscular Hemoglobin 32.9 pg (25.0-34.0); Mean Corpuscular Hgb Conc 35.1 g/dL (32.0-36.0); Mean Corpuscular Volume 93.8 fL (80.0-100.0); Platelet Count 246 K/uL (130-400); RDW Coefficient of Variation 13.7 % (11.5-14.5); RDW Standard Deviation 46.5 fL (36.4-46.3); Red Blood Count 3.25 M/uL (4.70-6.10); White Blood Count 16.77 K/ul (4.8-10.8)
[2023-04-23 07:17] LABS: BUN Creatinine Ratio 29.7 (10-20); Calcium 9.2 mg/dl (8.6-10.3); Creatinine Clr Calc Pharmacy 84.9 ml/min; Est GFR (African American) 97.9 ml/min; Est GFR (Non-African American) 84.5 ml/min
--- NOTE | 2023-04-23 08:55 | Discharge Summary ---
Date of Service April 23, 2023 Admission HPI Per Admitting Provider This is a 72-year-old female male who presents with persistent back and leg pain after failing since course of nonoperative care is here for surgical invention. Principal Diagnosis Lumbar spinal stenosis with neurogenic claudication Discharge Data Allergies Allergy/AdvReac Type Severity Reaction Status Date / Time methylprednisolone Allergy Severe Verified 04/20/23 08:17 [From Solu-Medrol] adhesive tape Allergy Mild Skin Verified 04/06/23 11:18 peeling doxycycline AdvReac Intermediate Severe Verified 04/06/23 11:18 headaches prednisone AdvReac Intermediate Severe Verified 04/06/23 11:18 headaches Consultations 04/20/23 13:46 Consult Hospitalist Routine Procedures Performed Operation Date: 04/20/23 09:50 Actual Procedures p L4-S1 Decompression and Fusion, Spinal Cord Monitoring(Not Applicable) - Mikel Chong DO Ordered Studies 04/20/23 07:00 [place] lumbar spine 2-3V Routine Hospital Course (1) Neurogenic claudication due to lumbar spinal stenosis: Patient went multilevel lumbar impression fusion talus was taken to orthopedic for postoperative. Postoperatively he has been up and ambulating progressively. STEPHON drain decreasing probably. But pain well-controlled. Excellent strength testing. Subsidy discharged home. Discharge instructions found in chart for further review. Total Time Total Time Spent Total Time Spent (In Minutes): 20 minutes Discharge Plan Discharge Items Patient Disposition: Home - Self-Care Reason For Visit: Lumbar Spondylosis, Lumbar Disc Diseae, Spinal Kayden Discharge Diagnosis: Lumbar spinal stenosis with radiculopathy Activity: As commented below Non-emergency contact: Primary Care Provider Call non-emergency contact if: you have any medication questions Follow-up/Referrals: Margie Breaux CRNP [Primary Care Provider] - Diet: Regular Addtl Attending Provider Instructions: ACTIVITY RECOMMENDATIONS: SELF CARE INSTRUCTIONS AFTER THORACIC/LUMBAR FUSIONS 1. You may walk to your tolerance. It is good exercise for your legs and back. Expect some back and intermittent leg aches and pains. 2. You may perform "counter-top" level activities (make a sandwich, bakari with a project, etc.). 3. No bending or lifting of more than 10 pounds or back twisting of any nature (roll like a log when turning in bed). 4. You may ride in a car for 20-30 minutes at a time. No driving until after your first visit with your doctor. 5. Frequent changes of position and restricting sitting to 30 minutes at a time will help limit the amount of back spasms and stiffness you may experience. 6. You may discontinue the use of ambulatory aids (cane, crutches, etc.) once your strength and confidence allow. 7. You may soda fountain manager the shower and let water strike your incision when you arrive home at least once daily. Do not take a tub bath, sit in a hot tub or go into a swimming pool until after your first recheck in the office. SPECIAL CARE INSTRUCTIONS: VERY IMPORTANT TO READ AND REVIEW A. Your surgical incision has been closed with a cosmetic suture under the skin that will dissolve in about 6 weeks. In 14 days, you can use a pair of clean scissors and cut the suture that is left outside of the skin at the ends of your incision. 1. The small skin tapes can be removed 7 days after surgery if they have not fallen off by that point. 2. You may keep the wound open to air as much as possible to promote healing after post-op day number 5 unless told otherwise by your doctor. 3. If you think the wound looks like it is becoming infected (redness or worsening drainage) and/or you are experiencing fever, chill or worsening back pain and muscle spasms, contact the office so that we may evaluate you as soon as possible. B. Complications are uncommon, but please contact us if you have any signs or symptoms of: 1. wound infection (fever higher than 102.5 degrees F, redness, separation of wound, drainage, or increasing pain from the incision) 2. blood clots in legs (pain, swelling, redness and warmth in legs) 3. urinary tract infection (fever higher than 102.5 degrees F, burning upon urination or increased frequency of urination) 4. nerve problems (inability to walk on your toes or heels, numbness, loss of bowel or bladder control) 5. any other symptoms that concern you C. Please call the office at if you have any concerns or questions about your operation or recovery. D. No smoking! Smoking drastically decreases the chance of a solid fusion. E. Do not take any anti-inflammatory medications (Indocin, Advil, Motrin, Aspirin, Naprosyn, etc.) as these may inhibit the chance of a solid fusion. Tylenol is okay to take for pain. MANAGING PAIN AFTER SPINAL SURGERY 1. Narcotic medication is intended for short-term use and will be provided for surgical pain. Surgical pain usually lasts for a period of 4-6 weeks. Narcotic medication includes Percocet, Vicodin, Darvocet, Tylenol #3 or Lortab. 2. Longer-term pain is more appropriately treated with non-narcotic medication such as Tylenol ES. 3. Muscle spasm is not appropriately treated with narcotics. Muscle relaxers such as Soma, Flexeril or Skelaxin can be used along with Tylenol ES. 4. Remember that we all live with some "aches and pains". This is not unusual or uncommon after an injury or as we get older. a. Back pain is expected and may include muscle spasms for 4 to 6 weeks after surgery. The pain should gradually improve. If the pain worsens for no apparent reason, please contact the office. b. Intermittent leg pain may also be experienced and should not be concerned about unless it worsens for no apparent reason. If so, please contact the office. 5. We will provide appropriate medication within the normal guidelines of their prescribed use. We will also be very cautious and aware of potential abuse and extended duration of patients' medication needs. a. Pain medications are for your comfort and to assist with sleep and rest so that the tissue can heal. They are not provided in order to return to normal activity and should not be used through the day. To do so or worsening pain at night can result from ongoing tissue damage and development of tolerance to the prescribed medicine. 6. Please allow 2-3 days to process refills. Prescriptions will not be mailed but must be picked up at the office. FOLLOW UP VISIT: Keep your scheduled follow-up appointment. Any questions, please call the office at . Pending Studies at Discharge: No Stand-Alone Forms: My [employer], Smoking Cessation Medications and DC Order Prescriptions: New tramadol 50 mg tablet 50 mg PO Q6H PRN (Reason: pain, moderate) Qty: 30 0RF oxycodone 5 mg tablet 5 mg PO Q6H PRN (Reason: pain) Qty: 30 0RF Continued multivitamin Tablet 0.5 tab PO BID atorvastatin 40 mg Tablet 40 mg PO HS clopidogrel [Plavix] 75 mg Tablet 75 mg PO QAM chlorthalidone 25 mg Tablet 25 mg PO QAM amlodipine 5 mg Tablet 5 mg PO QAM aspirin 81 mg Tablet,Delayed Release (Dr/Ec) 81 mg PO QAM pantoprazole 20 mg Tablet,Delayed Release (Dr/Ec) 20 mg PO QAM ketoconazole 2 % Cream 1 applic TOPICAL BID PRN (Reason: .) Patient Comments: applies to groin area losartan 100 mg Tablet 100 mg PO HS cholecalciferol (vitamin D3) [Vitamin D3] 50 mcg (2,000 unit) Tablet 50 mcg PO BID coQ10 (ubiquinol) 100 mg Capsule 100 mg PO QAM Glucosamine Chondroitin 550-30-1 mg Capsule 1 cap PO BID Fish Oil Capsule 1,000 mg PO QAM Discharge Orders: Discharge Order (Routine); Ordered 04/23/23 Ordered By: Mikel Chong Admission Data Admit Date/Time: 04/20/23 12:10 Attending Provider: Mikel Chong Admit Provider: Mikel Chong Primary Care Provider: Margie Breaux Other Providers: Bel Howell
--- NOTE | 2023-04-23 09:30 | Hospitalist Progress Note ---
Date of Service April 23, 2023 Assessment & Plan (1) Neurogenic claudication due to lumbar spinal stenosis: Plan: Patient is a 72 yr male with CAD, PAD, carotid artery stenosis s/p CEA, GERD w/ hx Begum's, prior CVA, BPH, HTN, and lumbar radiculopathy who underwent L4-S1 decompression and fusion today by Dr. Chong. Pt has a history of CAD but has had no recent anginal symptoms. He has a history of adverse reaction to methylprednisolone in the past but has more recently tolerated low-dose prednisone. Lumbar spinal stenosis with neurogenic claudication S/P lumbar decompression, fusion surgery by Dr. Chong on 04/20/2023 Monitor for postop anemia DVT prophylaxis, wound care as per primary team Continue PT OT, incentive spirometer Bowel regimen to prevent constipation Leukocytosis, hyperglycemia likely secondary to steroids--monitor Resume Plavix when appropriate Hyperglycemia Likely due to steroids HbA1c 5.5 Advised dietary changes (2) CAD (coronary artery disease): Plan: Continue ASA 81mg Resume plavix once ok with surgeon Continue atorvastatin (3) Hypertension: Plan: Continue home chlorthalidone and amlodipine with holding parameters (4) GERD (gastroesophageal reflux disease): Plan: Chronic, stable Continue PPI Plan CODE STATUS Full code Admission and Anticipated Discharge Date Admission Date: April 20, 2023 Results & Data Results & Data Vital Signs (Past 12 Hours) Vital Signs Temp Pulse Resp BP Pulse Ox O2 Del Method 04/23/23 07:51 36.2 C L 55 L 16 127/66 95 Room Air 04/23/23 07:20 Room Air (2) CAD (coronary artery disease) Coronary Disease-Associated Artery/Lesion type: [place] artery [place] vs. transplanted heart: [place] heart Associated angina: without angina Qualified Code(s): I25.10 - Atherosclerotic heart disease of [place] coronary artery without angina pectoris (3) Hypertension Hypertension type: primary hypertension Qualified Code(s): I10 - Essential (primary) hypertension (4) GERD (gastroesophageal reflux disease) Esophagitis presence: without esophagitis Qualified Code(s): K21.9 - Gastro- esophageal reflux disease without esophagitis
== END 2023-04-23 10:50 | disposition home or self-care (01) | DRG 454 ==
LOC: ASU 07:12 → 3E 12:10
DX: Z79.899 Other long term (current) drug therapy; E78.5 Hyperlipidemia, unspecified; M19.90 Unspecified osteoarthritis, unspecified site; T38.0X5A Adverse effect of glucocorticoids and synthetic analogues, initial encounter; K21.9 Gastro-esophageal reflux disease without esophagitis; Z79.82 Long term (current) use of aspirin; N40.0 Benign prostatic hyperplasia without lower urinary tract symptoms; I10 Essential (primary) hypertension; D62 Acute posthemorrhagic anemia; R73.9 Hyperglycemia, unspecified; D72.829 Elevated white blood cell count, unspecified; Z86.73 Personal history of transient ischemic attack (TIA), and cerebral infarction without residual deficits; Z91.048 Other nonmedicinal substance allergy status; Z95.5 Presence of coronary angioplasty implant and graft; Z88.1 Allergy status to other antibiotic agents; Z79.02 Long term (current) use of antithrombotics/antiplatelets; M48.062 Spinal stenosis, lumbar region with neurogenic claudication; I25.10 Atherosclerotic heart disease of native coronary artery without angina pectoris; Z88.8 Allergy status to other drugs, medicaments and biological substances; I73.9 Peripheral vascular disease, unspecified; Z87.891 Personal history of nicotine dependence; I25.2 Old myocardial infarction